=== PATIENT | female | born 2005 | race African-American/Black ===

== ENCOUNTER 2023-05-16 18:12 | Emergency (ER) | payer SELFPAY ==
[~2023-05-16] VITALS: Ht 188 cm; Wt 74.4 kg
[2023-05-16 18:44] VITALS: O2SAT 100
[2023-05-16] MEDS ORDERED: LIDO700A15 TP (19:51)
[2023-05-16] MEDS ORDERED: ACET-2708 MT (19:51)
[2023-05-16 20:16] VITALS: BP 133/76; PULSE 64; RESP 16; TEMP 98.6
== END 2023-05-16 20:19 | disposition home or self-care (01) ==
LOC: ER 18:12
DX: M54.50 Low back pain, unspecified (principal); X50.9XXA Other and unspecified overexertion or strenuous movements or postures, initial encounter; Y93.89 Activity, other specified; Y92.89 Other specified places as the place of occurrence of the external cause; Y99.8 Other external cause status
CPT/HCPCS: 99282